=== PATIENT | female | born 1995 | race Caucasian/White ===

== ENCOUNTER 2023-12-20 21:59 | Day surgery (SDC) | payer OTHER ==
[2023-12-20 22:24] VITALS: BMI 32.5
[2023-12-20 23:10] LABS: Creatinine, Urine 67.28 mg/dL (47-110)
[2023-12-20 23:25] LABS: #Basophils 0.01 10x3/uL (0.0-0.2); #Eosinphils 0.32 10x3/uL (0.0-0.5); #Monocytes 1.02 10x3/uL (0.0-1.1); #Neutrophils 8.02 10x3/uL (1.5-8.4); %Basophils 0.1 % (0.0-2.0); %Eosinophils 2.7 % (0.0-6.0); %Lymphocytes 18.9 % (18.0-47.0); %Monocytes 8.7 % (0.0-10.0); %Neutrophils 68.4 % (40.0-75.0); Hematocrit 33.3 % (34.9-44.5); Hemoglobin 11.2 g/dL (12.0-15.5); Mean Corpuscular HGB CONC 33.6 g/dL (32.0-36.0); Mean Corpuscular Hemoglobin 29.1 pg (27.0-33.0); Mean Corpuscular Volume 86.5 fL (81.6-98.3); Mean Platelet Volume 11.1 fL (7.4-10.4); Platelet Count 271 10x3/uL (150-450); RBC Distribution Width 12.4 % (11.5-14.5); Red Blood Cell (RBC) Count 3.85 10x6/uL (3.90-5.03); White Blood Cell (WBC) Count 11.7 10x3/uL (3.5-10.5)
[2023-12-20 23:41] LABS: ALT (SGPT) 15 U/L (8-55); AST (SGOT) 17 U/L (5-34); Albumin 2.4 g/dL (3.5-5.0); Alkaline Phosphatase 149 U/L (40-110); Anion Gap 13 mmol/L (10-20); BUN (Urea Nitrogen) 8 mg/dL (7.0-18.7); Bilirubin, Total 0.2 mg/dL (0.2-1.2); Calc. Creatinine Clearance 208 mL/min (70-130); Calcium 9.4 mg/dL (7.8-10.44); Carbon Dioxide 20 mmol/L (22-29); Chloride 107 mmol/L (98-107); Estimated GFR 125; Globulin 3.6 g/dL (2.4-3.5); Glucose 87 mg/dL (70-105); Potassium 3.8 mmol/L (3.5-5.1); Sodium 136 mmol/L (136-145)
== END 2023-12-21 00:15 | disposition home or self-care (01) ==
LOC: CSHLD/OP 21:59
PROVIDERS: ATTEND Obstetrics & Gynecology
DX: O99.891 Other specified diseases and conditions complicating pregnancy (principal); R03.0 Elevated blood-pressure reading, without diagnosis of hypertension; Z79.899 Other long term (current) drug therapy; Z3A.36 36 weeks gestation of pregnancy
CPT/HCPCS: 36415; 80053; 82570; 84156; 85025; 99282

== ENCOUNTER 2023-12-25 20:15 | Inpatient (IN) | payer OTHER ==
[2023-12-25] MEDS ORDERED: Lidocaine 1% (PF) 30 ML VIAL SC PRN (22:30)
[2023-12-25] MEDS ORDERED: HYDROcodone/Acetaminophen 5/325 mg Tablet PO PRN ×2 (22:30)
[2023-12-25] MEDS ORDERED: Tranexamic Acid 1,000 MG/10 ML VIAL IVP PRN (22:30)
[2023-12-25] MEDS ORDERED: hydrALAZINE 20 MG/ML VIAL SLOW IVP PRN (22:30)
[2023-12-25] MEDS ORDERED: Ondansetron PF 4 MG/2 ML Vial IVP PRN (22:30)
[2023-12-25] MEDS ORDERED: Acetaminophen 500 MG TAB PO PRN (22:30)
[2023-12-25] MEDS ORDERED: Misoprostol 200 MCG TAB PR PRN (22:30)
[2023-12-25] MEDS ORDERED: Oxytocin 30 units/NS 500 ML 500 ML IV SCH (22:30)
[2023-12-25] MEDS ORDERED: fentaNYL 50 mcg/mL 1 mL Vial SLOW IVP PRN (22:30)
[2023-12-25] MEDS ORDERED: Ibuprofen 800 MG TAB PO PRN (22:30)
[2023-12-25] MEDS ORDERED: Diphenoxylate HCl/Atropine Tablet PO PRN (22:30)
[2023-12-25] MEDS ORDERED: Promethazine HCl 25 MG/ML VIAL IM PRN (22:30)
[2023-12-25 22:34] VITALS: BMI 32.5
[2023-12-25] MEDS: Lactated Ringer's 1,000 ML IV SCH (22:53)
[2023-12-25] MEDS: Misoprostol 100 MCG TAB VAG SCH (23:01)
[2023-12-25] MEDS: Misoprostol 100 MCG TAB ONE (23:01)
[2023-12-25 23:26] LABS: Hematocrit 34.4 % (34.9-44.5); Hemoglobin 11.6 g/dL (12.0-15.5); Mean Corpuscular HGB CONC 33.7 g/dL (32.0-36.0); Mean Corpuscular Hemoglobin 29.1 pg (27.0-33.0); Mean Corpuscular Volume 86.4 fL (81.6-98.3); Mean Platelet Volume 11.2 fL (7.4-10.4); Platelet Count 280 10x3/uL (150-450); RBC Distribution Width 12.5 % (11.5-14.5); Red Blood Cell (RBC) Count 3.98 10x6/uL (3.90-5.03); White Blood Cell (WBC) Count 12.7 10x3/uL (3.5-10.5)
[2023-12-25 23:40] LABS: ALT (SGPT) 16 U/L (8-55); AST (SGOT) 18 U/L (5-34); Albumin 2.7 g/dL (3.5-5.0); Alkaline Phosphatase 166 U/L (40-110); Anion Gap 15 mmol/L (10-20); BUN (Urea Nitrogen) 9 mg/dL (7.0-18.7); Bilirubin, Total 0.2 mg/dL (0.2-1.2); Calc. Creatinine Clearance 210 mL/min (70-130); Carbon Dioxide 19 mmol/L (22-29); Chloride 107 mmol/L (98-107); Estimated GFR 125; Globulin 3.3 g/dL (2.4-3.5); Glucose 78 mg/dL (70-105); Sodium 137 mmol/L (136-145)
[2023-12-25 23:58] LABS: HBsAg Index 0.19 S/CO (0-0.99); Hep B Surf Ag - L&D Non-Reactive S/CO (NonReactive)
[2023-12-25 23:59] LABS: Syphilis Antibody Nonreactive (Nonreactive); Syphilis Antibody Index 0.03 S/CO (<1.00 Non-Reactive)
[2023-12-26] MEDS: Oxytocin 30 units/NS 500 ML 500 ML IV SCH (10:00)
[2023-12-26] MEDS ORDERED: fentaNYL/Ropivacaine Epidural 100 ML ONE (18:38)
[2023-12-26] MEDS ORDERED: Ondansetron PF 4 MG/2 ML Vial IVP PRN ×2 (19:26→19:27)
[2023-12-26] MEDS ORDERED: Lactated Ringer's 500 ML IV PRN ×2 (19:26→19:27)
[2023-12-26] MEDS ORDERED: Promethazine HCl 25 MG/ML VIAL IM PRN ×2 (19:26→19:27)
[2023-12-26] MEDS ORDERED: diphenhydrAMINE 50 MG/ML VIAL IVP PRN ×2 (19:26→19:27)
[2023-12-26] MEDS ORDERED: ePHEDrine Sulfate 50 MG/10 ML VIAL SLOW IVP PRN ×2 (19:26→19:27)
[2023-12-26] MEDS ORDERED: Moisturizing Cream (Eucerin) 113 GM JAR TOP PRN ×2 (19:26→19:27)
[2023-12-26] MEDS ORDERED: Naloxone HCl 0.4 mg/ml Vial IVP PRN ×4 (19:26→19:27)
[2023-12-26] MEDS ORDERED: Acetaminophen 325 MG TAB PO PRN (19:27)
[2023-12-26] MEDS ORDERED: Communication Order-Pharmacy FS SCH ×2 (19:30)
[2023-12-26] MEDS: fentaNYL 2 mcg/Ropivacaine 0.2% Epidural 100 ML CADD EPIDURAL SCH (19:38)
[2023-12-27] MEDS: Acetaminophen 500 MG TAB PO SCH (09:07)
[2023-12-27] MEDS ORDERED: Morphine PF 10 MG/10 ML VIAL ONE (10:07)
[2023-12-27] MEDS ORDERED: fentaNYL 50 mcg/mL 1 mL Vial ONE (10:08)
[2023-12-27] MEDS ORDERED: Promethazine HCl 25 MG/ML VIAL ONE (10:15)
[2023-12-27] MEDS ORDERED: Ondansetron PF 4 MG/2 ML Vial ONE (10:15)
[2023-12-27 10:29] LABS: Analyzer IN Cardio CS NICU; Critical Notified Whom: CR.GEDDIE; pH (Cord, venous) 7.354 (7.250-7.350)
[2023-12-27 10:30] LABS: Analyzer IN Cardio CS NICU; RapidComm Collect By OR NURSE
[2023-12-27] MEDS: Diphenoxylate HCl/Atropine Tablet PO PRN (10:45)
[2023-12-27] MEDS: Carboprost 250 MCG/ML AMP IM PRN (10:45)
[2023-12-27] MEDS ORDERED: Naloxone HCl 0.4 mg/ml Vial IVP PRN ×2 (10:46)
[2023-12-27] MEDS ORDERED: fentaNYL 50 mcg/mL 1 mL Vial SLOW IVP PRN (10:46)
[2023-12-27] MEDS ORDERED: Ondansetron PF 4 MG/2 ML Vial IVP PRN ×2 (10:46)
[2023-12-27] MEDS ORDERED: diphenhydrAMINE 50 MG/ML VIAL IVP PRN (10:46)
[2023-12-27] MEDS ORDERED: HYDROmorphone 0.5 MG/0.5 ML SYRINGE SLOW IVP PRN (10:46)
[2023-12-27] MEDS ORDERED: Ketorolac Tromethamine 30 MG (1 mL) VIAL IVP PRN (10:46)
[2023-12-27] MEDS ORDERED: Naloxone HCl 0.4 mg/ml Vial IV PRN (10:46)
[2023-12-27] MEDS ORDERED: Promethazine HCl 25 MG/ML VIAL IM PRN (10:46)
[2023-12-27] MEDS ORDERED: Moisturizing Cream (Eucerin) 113 GM JAR TOP PRN (10:46)
[2023-12-27] MEDS ORDERED: Meperidine HCl/PF 25 MG (1 mL) VIAL SLOW IVP PRN (10:46)
[2023-12-27] MEDS ORDERED: Ketorolac Tromethamine 30 MG (1 mL) VIAL IVP SCH (11:00)
[2023-12-27] MEDS ORDERED: Communication Order-Pharmacy FS SCH (11:00)
[2023-12-27] MEDS ORDERED: Ampicillin/Sulbactam 3 GM in Sodium Chloride 0.9% 100 ML IVPB SCH ×2 (11:00→14:47)
[2023-12-27] MEDS: CEFAZOLIN 2 GM VIAL ONE (12:36)
[2023-12-27] MEDS: Azithromycin 500 MG VIAL ONE (12:36)
[2023-12-27] MEDS ORDERED: diphenhydrAMINE 25 MG CAP PO PRN (14:47)
[2023-12-27] MEDS ORDERED: Simethicone Chewable 80 MG TAB PO PRN (14:47)
[2023-12-27] MEDS ORDERED: Bisacodyl 10 MG SUPP PR PRN (14:47)
[2023-12-27] MEDS ORDERED: Boostrix 0.5 ML (Tdap) VIAL (>/=7 yrs of age) IM ONE (14:47)
[2023-12-27] MEDS ORDERED: Acetaminophen 325 MG TAB PO PRN (14:47)
[2023-12-27] MEDS ORDERED: Misoprostol 200 MCG TAB PR PRN (14:47)
[2023-12-27] MEDS ORDERED: hydrALAZINE 20 MG/ML VIAL SLOW IVP PRN (14:47)
[2023-12-27] MEDS: Ampicillin/Sulbactam 3 GM in Sodium Chloride 0.9% 100 ML IVPB SCH (15:05)
[2023-12-27] MEDS: Acetaminophen 325 MG TAB PO PRN (20:41)
[2023-12-28] MEDS: Ferrous Sulfate 325 MG TAB PO SCH (00:37)
[2023-12-28] MEDS: Docusate 100 MG CAP PO SCH (00:37)
[2023-12-28 07:04] LABS: Hematocrit 32.9 % (34.9-44.5); Hemoglobin 11.1 g/dL (12.0-15.5); Mean Corpuscular HGB CONC 33.7 g/dL (32.0-36.0); Mean Corpuscular Hemoglobin 29.4 pg (27.0-33.0); Platelet Count 257 10x3/uL (150-450); RBC Distribution Width 12.9 % (11.5-14.5); Red Blood Cell (RBC) Count 3.78 10x6/uL (3.90-5.03)
[2023-12-28] MEDS ORDERED: Bupivacaine HCl 0.5%/Epinephrine 1:200,000/PF 30 ml Vial ONE (08:00)
[2023-12-28] MEDS ORDERED: Bupivacaine/Epinephrine 0.25% 30 ML VIAL ONE (08:00)
[2023-12-28] MEDS: Prenatal Vitamin 1 TAB PO SCH (08:08)
[2023-12-28] MEDS: HYDROcodone/Acetaminophen 5/325 mg Tablet PO PRN ×2 (08:08→13:17)
[2023-12-28] MEDS: Ibuprofen 800 MG TAB PO SCH (14:13)
[2023-12-29 04:28] VITALS: TEMP 98
[2023-12-29 07:35] VITALS: BP 120/76
== END 2023-12-29 17:50 | disposition home or self-care (01) | DRG 786 ==
LOC: CSHLD 20:15 → CSHPED 12-27 18:30
PROVIDERS: ADMIT Obstetrics & Gynecology; ATTEND Obstetrics & Gynecology
PROC: 10D00Z1 Extraction of Products of Conception, Low, Open Approach (ICD-10-PCS; principal; 2023-12-27)
PROC: 4A033R1 Measurement of Arterial Saturation, Peripheral, Percutaneous Approach (ICD-10-PCS; 2023-12-27)
DX: O13.4 Gestational [pregnancy-induced] hypertension without significant proteinuria, complicating childbirth (principal); O41.1230 Chorioamnionitis, third trimester, not applicable or unspecified; Z37.0 Single live birth; Z3A.37 37 weeks gestation of pregnancy
CPT/HCPCS: 36415; 51702; 80053; 82805; 85027; 86780; 86850; 86900; 86901; 87340; J0295; J2274; J2405; J2550; J2590; J3010; J3490; J7120